=== PATIENT | female | born 1995 | race Caucasian/White ===

== ENCOUNTER 2021-11-17 23:57 | Emergency (ER) | payer MEDICAID ==
[~2021-11-17] VITALS: Ht 152.4 cm; Wt 67.6 kg
[2021-11-18 00:01] VITALS: BP 134/94
--- NOTE | 2021-11-18 00:10 | NUR ---
PATIENT AMBULATED TO BATHROOM FOR URINE COLLECTION
[2021-11-18] MEDS ORDERED: MECL-231 PO (00:32)
--- NOTE | 2021-11-18 01:07 | NUR ---
Seen by MURPHY no nursing interventions provided for patient.
--- NOTE | 2021-11-18 01:07 | NUR ---
Patient discharged. Written and verbal after care instructions given and explained. Patient alert, oriented and verbalized understanding of instructions. Ambulatory with steady gait. All questions addressed prior to discharge. ID band removed. Patient advised to follow up with PMD. Rx of Antivert given. Patient educated on indication of medication including possible reaction and side effects. Opportunity to ask questions provided and answered.
== END 2021-11-18 01:07 | disposition home or self-care (01) ==
LOC: MED 23:57
DX: R42 Dizziness and giddiness (principal); R20.2 Paresthesia of skin; H93.11 Tinnitus, right ear; Z79.899 Other long term (current) drug therapy; Z88.0 Allergy status to penicillin
CPT/HCPCS: 81002; 81025; 99282